=== PATIENT | female | born 1985 | race Caucasian/White ===

== ENCOUNTER 2019-01-16 08:25 | Observation (INO) | payer OTHER ==
[~2019-01-16] VITALS: Ht 157.5 cm; Wt 72.6 kg
[2019-01-16] MEDS ORDERED: PREN1TAB80 PO (08:38)
[2019-01-16] MEDS ORDERED: DSS100 PO (08:38)
[2019-01-16 08:46] VITALS: BP 124/78
== END 2019-01-16 09:20 | disposition home or self-care (01) ==
LOC: 4S 08:25
PROVIDERS: ADMIT Obstetrics & Gynecology; ATTEND Obstetrics & Gynecology
DX: O09.523 Supervision of elderly multigravida, third trimester (principal); Z3A.34 34 weeks gestation of pregnancy

== ENCOUNTER 2019-01-21 08:20 | Observation (INO) | payer OTHER ==
[~2019-01-21] VITALS: Ht 157.5 cm; Wt 73.0 kg
[~2019-01-21 08:20] MED LIST: DSS100 PO; PREN1TAB80 PO
[2019-01-21 09:18] VITALS: BP 118/74
[2019-01-21 09:33] LABS: GLUCOMETER DEV NAME(LOC) 4S.; GLUCOSE,POINT OF CARE 104 MG/DL (70-110)
== END 2019-01-21 10:00 | disposition home or self-care (01) ==
LOC: 4S 08:20
PROVIDERS: ADMIT Obstetrics & Gynecology; ATTEND Obstetrics & Gynecology
DX: O24.419 Gestational diabetes mellitus in pregnancy, unspecified control (principal); O09.523 Supervision of elderly multigravida, third trimester; Z3A.35 35 weeks gestation of pregnancy
CPT/HCPCS: 81002; 82962; G0378

== ENCOUNTER 2019-01-24 09:15 | Observation (INO) | payer OTHER ==
[~2019-01-24] VITALS: Ht 157.5 cm; Wt 73.9 kg
[2019-01-24 09:33] VITALS: BP 126/79
[2019-01-24 10:24] LABS: GLUCOMETER DEV NAME(LOC) 4S.; GLUCOSE,POINT OF CARE 109 MG/DL (70-110)
== END 2019-01-24 10:15 | disposition home or self-care (01) ==
LOC: 4S 09:15
PROVIDERS: ADMIT Obstetrics & Gynecology; ATTEND Obstetrics & Gynecology
DX: O24.419 Gestational diabetes mellitus in pregnancy, unspecified control (principal); O09.523 Supervision of elderly multigravida, third trimester; Z3A.35 35 weeks gestation of pregnancy
CPT/HCPCS: 81002; 82962; G0378

== ENCOUNTER 2019-01-31 08:50 | Observation (INO) | payer OTHER ==
[~2019-01-31] VITALS: Ht 160 cm; Wt 74.8 kg
[2019-01-31 09:34] LABS: GLUCOMETER DEV NAME(LOC) 4S.; GLUCOSE,POINT OF CARE 109 MG/DL (70-110)
[2019-01-31 10:08] VITALS: BP 118/73
[2019-01-31] MEDS ORDERED: PNV11TAB PO (10:08)
== END 2019-01-31 10:35 | disposition home or self-care (01) ==
LOC: 4S 08:50
PROVIDERS: ADMIT Obstetrics & Gynecology; ATTEND Obstetrics & Gynecology
DX: O09.523 Supervision of elderly multigravida, third trimester (principal); Z3A.36 36 weeks gestation of pregnancy
CPT/HCPCS: 36415; 81002; 82962; 83036; G0378

== ENCOUNTER 2019-02-07 08:45 | Observation (INO) | payer OTHER ==
[~2019-02-07] VITALS: Ht 157.5 cm; Wt 73.9 kg
[~2019-02-07 08:45] MED LIST changes: +PNV11TAB PO
[2019-02-07 11:59] LABS: GLUCOMETER DEV NAME(LOC) 4S.; GLUCOSE,POINT OF CARE 82 MG/DL (70-110)
== END 2019-02-07 09:45 | disposition home or self-care (01) ==
LOC: 4S 08:45
PROVIDERS: ADMIT Obstetrics & Gynecology; ATTEND Obstetrics & Gynecology
DX: O24.419 Gestational diabetes mellitus in pregnancy, unspecified control (principal); O09.523 Supervision of elderly multigravida, third trimester; Z3A.37 37 weeks gestation of pregnancy
CPT/HCPCS: 81002; 82962; G0378

== ENCOUNTER 2019-02-13 12:13 | Observation (INO) | payer OTHER ==
[2019-02-13 13:57] LABS: BASOPHILS % (AUTO) 0.4 % (0.0-2.0); EOSINOPHILS % (AUTO) 0.4 % (1.0-6.0); HEMATOCRIT 36.9 % (36-46); HEMOGLOBIN 12.2 g/dL (12.0-16.0); LYMPHOCYTES # (AUTO) 1.3 K/uL (1.0-4.8); LYMPHOCYTES % (AUTO) 18.7 % (22.0-44.0); MEAN CORPUSCULAR HEMOGLOBIN 28.9 pg (26.0-34.0); MEAN CORPUSCULAR VOLUME 88 fL (80-100); MONOCYTES # (AUTO) 0.5 K/uL (0.1-1.0); MONOCYTES % (AUTO) 6.5 % (2.0-9.0); NEUTROPHILS # (AUTO) 5.2 K/uL (1.8-7.7); PLATELET COUNT (AUTO) 211 K/uL (150-450); RED BLOOD CELL COUNT(AUTO) 4.22 MIL/uL (4.00-5.20); RED CELL DISTRIBUTION WIDTH 14.1 % (11.5-14.5)
[2019-02-13 14:23] LABS: ANION GAP 13 mmol/L (8-16); CARBON DIOXIDE 20 mmol/L (22-29); CHLORIDE 104 mmol/L (98-107); CREATININE 0.45 mg/dL (0.60-1.30); GLOMERULAR FILTR. RATE CALC > 60 mL/min (>60); GLUCOSE,RANDOM 76 mg/dL (70-110); POTASSIUM 3.6 mmol/L (3.5-5.1); SODIUM SERUM 137 mmol/L (136-145); UREA NITROGEN, BLOOD 9 mg/dL (7-18)
[2019-02-13 14:29] LABS: ALANINE AMINOTRANSFERASE 26 U/L (12-78); ALBUMIN 2.7 g/dL (3.4-5.0); ALKALINE PHOSPHATASE 175 U/L (46-116); ASPARTATE AMINOTRANSFERASE 29 U/L (15-37); BILIRUBIN,TOTAL 0.4 mg/dL (0.1-1.0); TOTAL PROTEIN, SERUM 6.5 g/dL (6.4-8.2); URIC ACID 4.3 mg/dL (2.6-7.2)
[2019-02-13] MEDS ORDERED: SODIUM CHLORIDE 0.45% 1,000 ML IV ONE (15:00)
[2019-02-13] MEDS ORDERED: SODIUM CHLORIDE 0.9% 1,000 ML IV ONE ×2 (15:06→15:15)
[2019-02-13 18:29] VITALS: BP 113/75
[2019-02-13 19:24] LABS: GLUCOMETER DEV NAME(LOC) 4S.; GLUCOSE,POINT OF CARE 73 MG/DL (70-110)
== END 2019-02-13 18:05 | disposition home or self-care (01) ==
LOC: 4S 12:13
PROVIDERS: ADMIT Obstetrics & Gynecology; ATTEND Obstetrics & Gynecology
DX: O62.9 Abnormality of forces of labor, unspecified (principal); O24.410 Gestational diabetes mellitus in pregnancy, diet controlled; O26.893 Other specified pregnancy related conditions, third trimester; R51 Headache; O09.523 Supervision of elderly multigravida, third trimester; Z3A.38 38 weeks gestation of pregnancy
CPT/HCPCS: 36415; 80053; 81002; 82962; 84550; 85025; G0378; J7030

== ENCOUNTER 2019-02-14 08:29 | Observation (INO) | payer OTHER ==
[~2019-02-14] VITALS: Ht 157.5 cm; Wt 74.4 kg
[2019-02-14 09:24] LABS: GLUCOMETER DEV NAME(LOC) 4S.; GLUCOSE,POINT OF CARE 119 MG/DL (70-110)
== END 2019-02-14 10:05 | disposition home or self-care (01) ==
LOC: 4S 08:29
PROVIDERS: ADMIT Obstetrics & Gynecology; ATTEND Obstetrics & Gynecology
DX: O09.523 Supervision of elderly multigravida, third trimester (principal); Z3A.38 38 weeks gestation of pregnancy
CPT/HCPCS: 81002; 82962; G0378

== ENCOUNTER 2019-02-15 13:42 | Observation (INO) | payer OTHER ==
[~2019-02-15] VITALS: Ht 157.5 cm; Wt 74.1 kg
[2019-02-15 13:59] LABS: GLUCOMETER DEV NAME(LOC) 4S.; GLUCOSE,POINT OF CARE 85 MG/DL (70-110)
== END 2019-02-15 15:55 | disposition home or self-care (01) ==
LOC: 4S 13:42
PROVIDERS: ADMIT Obstetrics & Gynecology; ATTEND Obstetrics & Gynecology
DX: O62.9 Abnormality of forces of labor, unspecified (principal); O60.03 Preterm labor without delivery, third trimester; O09.523 Supervision of elderly multigravida, third trimester; O26.893 Other specified pregnancy related conditions, third trimester; R10.30 Lower abdominal pain, unspecified; Z3A.39 39 weeks gestation of pregnancy
CPT/HCPCS: 81002; 82962; G0378

== ENCOUNTER 2019-02-17 23:58 | Observation (INO) | payer OTHER ==
[~2019-02-17] VITALS: Ht 152.4 cm; Wt 74.4 kg
[~2019-02-17 23:58] MED LIST changes: -PNV11TAB PO
[2019-02-18 01:09] LABS: GLUCOMETER DEV NAME(LOC) 4S.; GLUCOSE,POINT OF CARE 87 MG/DL (70-110)
[2019-02-18 01:58] VITALS: BP 122/88
== END 2019-02-18 01:40 | disposition home or self-care (01) ==
LOC: 4S 23:58
PROVIDERS: ADMIT Obstetrics & Gynecology; ATTEND Obstetrics & Gynecology
DX: O46.93 Antepartum hemorrhage, unspecified, third trimester (principal); O99.89 Other specified diseases and conditions complicating pregnancy, childbirth and the puerperium; M54.9 Dorsalgia, unspecified; O26.893 Other specified pregnancy related conditions, third trimester; R10.9 Unspecified abdominal pain; O09.523 Supervision of elderly multigravida, third trimester; Z3A.39 39 weeks gestation of pregnancy
CPT/HCPCS: 81002; 82962; G0378 ×2

== ENCOUNTER 2019-02-18 08:14 | Inpatient (IN) | payer OTHER ==
[~2019-02-18] VITALS: Ht 157.5 cm; Wt 74.4 kg
[2019-02-18 09:03] VITALS: BP 124/79
[2019-02-18 10:47] VITALS: BP 114/77
[2019-02-18 10:48] LABS: GLUCOMETER DEV NAME(LOC) 4S.; GLUCOSE,POINT OF CARE 120 MG/DL (70-110)
[2019-02-18] MEDS ORDERED: OXYTOCIN 30 UNITS/LACT RINGERS 500 ML IV ONE (11:27)
[2019-02-18] MEDS ORDERED: CITRIC ACID/SODIUM CITRATE 30 ML SOLUTION UDCUP PO PRN (11:30)
[2019-02-18] MEDS ORDERED: FentaNYL CITRATE-PF 100 MCG/2 ML VIAL IVP PRN (11:30)
[2019-02-18] MEDS ORDERED: METOCLOPRAMIDE HCL 5 MG/ML 2 ML VIAL IVP PRN (11:30)
[2019-02-18 12:04] LABS: BASOPHILS % (AUTO) 0.3 % (0.0-2.0); EOSINOPHILS % (AUTO) 0 % (1.0-6.0); HEMATOCRIT 39.8 % (36-46); HEMOGLOBIN 13.2 g/dL (12.0-16.0); LYMPHOCYTES # (AUTO) 0.8 K/uL (1.0-4.8); LYMPHOCYTES % (AUTO) 8.2 % (22.0-44.0); MEAN CORPUSCULAR HGB CONC 33.2 G/dL (31.0-37.0); MEAN CORPUSCULAR VOLUME 88 fL (80-100); MONOCYTES # (AUTO) 0.3 K/uL (0.1-1.0); MONOCYTES % (AUTO) 3.2 % (2.0-9.0); NEUTROPHILS # (AUTO) 8.6 K/uL (1.8-7.7); PLATELET COUNT (AUTO)-OB 247 K/uL (150-450); RED BLOOD CELL COUNT(AUTO) 4.55 MIL/uL (4.00-5.20); RED CELL DISTRIBUTION WIDTH 14.3 % (11.5-14.5)
[2019-02-18 12:14] LABS: NEUTROPHILS % (AUTO) 88.3 % (40.0-70.0)
[2019-02-18] MEDS: RINGERS SOLUTION,LACTATED 1,000 ML IV SCH ×2 (12:22→19:03)
[2019-02-18] MEDS ORDERED: OXYTOCIN 30 UNITS/LACT RINGERS 500 ML IV PRN ×2 (13:00→15:30)
[2019-02-18] MEDS ORDERED: ROPIVACAINE HCL/PF 0.2% 100 ML ED ONE ×2 (15:02→23:59)
[2019-02-18] MEDS: RINGERS SOLUTION,LACTATED 1,000 ML IV PRN (15:28)
[2019-02-18] MEDS ORDERED: ONDANSETRON HCL 4 MG/2 ML VIAL IVP PRN (15:30)
[2019-02-18] MEDS ORDERED: ROPIVACAINE HCL/PF 0.2% 100 ML ED PRN (15:30)
[2019-02-18] MEDS ORDERED: DiphenhydrAMINE HCL 50 MG/ML VIAL IVP PRN (15:30)
[2019-02-18] MEDS ORDERED: OXYGEN THERAPY IH SCH (20:00)
[2019-02-19] MEDS: RINGERS SOLUTION,LACTATED 1,000 ML IV SCH (03:41)
[2019-02-19] MEDS: RINGERS SOLUTION,LACTATED 1,000 ML IV PRN (07:10)
[2019-02-19] MEDS ORDERED: OXYTOCIN 30 UNITS/LACT RINGERS 500 ML IV ONE (08:11)
[2019-02-19] MEDS ORDERED: LIDOCAINE/PF 1% 30 ML VIAL INJ PRN (08:15)
[2019-02-19] MEDS ORDERED: OxyCODONE HCL/ACETAMINOPHEN 5-325 MG TABLET PO PRN ×2 (08:15)
[2019-02-19] MEDS ORDERED: MAGNESIUM HYDROXIDE SUSPENSION 30 ML UDCUP PO PRN (08:15)
[2019-02-19] MEDS ORDERED: BENZOCAINE 20%/MENTHOL 56 GM SPRAY CANISTER TP PRN (08:15)
[2019-02-19] MEDS ORDERED: LANOLIN 7 GM OINTMENT TP PRN (08:15)
[2019-02-19] MEDS: IBUPROFEN 800 MG TABLET PO PRN ×2 (09:16→22:52)
[2019-02-19] MEDS: GLYCERIN/WITCH HAZEL LEAF 40 PADS JAR TP PRN ×2 (09:19→09:20)
[2019-02-20 05:49] LABS: BASOPHILS % (AUTO) 0.1 % (0.0-2.0); EOSINOPHILS % (AUTO) 0.3 % (1.0-6.0); HEMATOCRIT 29.9 % (36-46); HEMOGLOBIN 9.8 g/dL (12.0-16.0); LYMPHOCYTES # (AUTO) 1.6 K/uL (1.0-4.8); LYMPHOCYTES % (AUTO) 9.7 % (22.0-44.0); MEAN CORPUSCULAR HEMOGLOBIN 28.8 pg (26.0-34.0); MEAN CORPUSCULAR VOLUME 87 fL (80-100); MONOCYTES # (AUTO) 1.3 K/uL (0.1-1.0); MONOCYTES % (AUTO) 7.8 % (2.0-9.0); NEUTROPHILS # (AUTO) 13.2 K/uL (1.8-7.7); NEUTROPHILS % (AUTO) 82.1 % (40.0-70.0); PLATELET COUNT (AUTO)-OB 193 K/uL (150-450); RED BLOOD CELL COUNT(AUTO) 3.42 MIL/uL (4.00-5.20); RED CELL DISTRIBUTION WIDTH 14.9 % (11.5-14.5)
[2019-02-20] MEDS ORDERED: IBUP-2071 PO (09:42)
[2019-02-20] MEDS ORDERED: FERR-89 PO (09:43)
== END 2019-02-20 11:25 | disposition home or self-care (01) | DRG 560 ==
LOC: OBSVTOIN 08:14 → 4S 08:14
PROVIDERS: ADMIT Obstetrics & Gynecology; ATTEND Obstetrics & Gynecology
PROC: 10E0XZZ Delivery of Products of Conception, External Approach (ICD-10-PCS; principal; 2019-02-19)
PROC: 0W8NXZZ Division of Female Perineum, External Approach (ICD-10-PCS; 2019-02-19)
PROC: 3E0R3BZ Introduction of Anesthetic Agent into Spinal Canal, Percutaneous Approach (ICD-10-PCS; 2019-02-19)
PROC: 00HU33Z Insertion of Infusion Device into Spinal Canal, Percutaneous Approach (ICD-10-PCS; 2019-02-19)
DX: O77.0 Labor and delivery complicated by meconium in amniotic fluid (principal); O24.429 Gestational diabetes mellitus in childbirth, unspecified control; O09.523 Supervision of elderly multigravida, third trimester; Z3A.39 39 weeks gestation of pregnancy; Z37.0 Single live birth
CPT/HCPCS: 86850; 86900; 86901; J2590; J2795; J3010; J7120